=== PATIENT | male | born 1965 | race Caucasian/White ===

== ENCOUNTER 2018-07-09 06:07 | Inpatient (IN) | payer OTHER ==
[~2018-07-09] VITALS: Ht 177.8 cm; Wt 106.6 kg
[2018-07-09] VITALS (16 sets, daily range): BP systolic 87–116; BP diastolic 45–72
[2018-07-09] MEDS ORDERED: Zemuron 50mg/5ml Inj IV ONE (06:30)
[2018-07-09] MEDS ORDERED: Dexamethasone 4mg/ml vial ONE (06:46)
[2018-07-09] MEDS ORDERED: Lidocaine 1% MPF 10mg/ml 5ml ONE (06:46)
[2018-07-09] MEDS ORDERED: Sodium Chloride 10ml vial INJ ONE (06:46)
[2018-07-09] MEDS ORDERED: Lidocaine 1% Plain 30 ml INJ ONE (06:46)
[2018-07-09] MEDS ORDERED: fentaNYL 100 mcg/2 mL IV ONE (06:48)
[2018-07-09] MEDS ORDERED: ceFAZolin sod 2 GM in D5W 110 ML IVPB ONE (07:00)
[2018-07-09] MEDS ORDERED: TRAZODONE HCL100 MG ORAL (07:16)
[2018-07-09] MEDS ORDERED: LISINOPRIL10 MG ORAL (07:16)
[2018-07-09] MEDS ORDERED: TRAMADOL HCL50 MG ORAL (07:16)
[2018-07-09] MEDS ORDERED: SYNTHROID75 MCG ORAL (07:16)
[2018-07-09] MEDS ORDERED: Gelfoam Size TOPIC ONE (07:30)
[2018-07-09] MEDS ORDERED: Thrombin 5000 units TOPIC ONE (07:30)
[2018-07-09] MEDS ORDERED: Bacitracin 50000 Units Vial IRRIG ONE (07:30)
[2018-07-09] MEDS ORDERED: Propofol 1,000mg/ 100ml btl IV ONE (07:30)
[2018-07-09] MEDS ORDERED: LR 1000ml ONE (07:30)
[2018-07-09] MEDS ORDERED: Bupivacaine w/Epi 0.5% 30ml Vial INJ ONE (07:30)
[2018-07-09] MEDS ORDERED: Thrombin 5000 units spray kit TOPIC ONE (07:30)
--- NOTE | 2018-07-09 07:45 | Pre-Procedure Note/Attestation ---
Pre-Procedure Note/Attestation Complete Prior to Procedure Procedure Narrative: Left L5-S1 laminotomies, foraminotomy and microdiscectomy Attestation I attest that I discussed the nature of the procedure; its benefits; risks and complications; and alternatives (and the risks and benefits of such alternatives ), prior to the procedure, with the patient (or the patient's legal door to door sales representative). I attest that, if there was a reasonable possibility of needing a blood transfusion, the patient (or the patient's legal door to door sales representative) was given the [facility] standardized written summary, pursuant to the Eh Vira Blood Safety Act ([place] Health and Safety Code # 1645, as amended). I attest that I re-evaluated the patient just prior to the surgery and that there has been no change in the patient's H&P, except as documented below: Sukhdev Patel MD Jul 09, 2018 07:45
[2018-07-09] MEDS ORDERED: Vancomycin 1gm vial IVPB ONE (09:00)
[2018-07-09] MEDS ORDERED: Glycopyrrolate 0.2mg/ml 1ml Vial ONE ×2 (09:04→09:12)
[2018-07-09] MEDS ORDERED: Naloxone 0.4mg/ml Inj ONE (09:11)
[2018-07-09] MEDS ORDERED: LR 1000ml 1,000 ML IVLG SCH (09:39)
--- NOTE | 2018-07-09 09:41 | Brief Operative Note ---
Immediate Post Operative Note Operative Note Pre-op Diagnosis: Lumbar radiculopathy, HNP L5S1 Procedure: Left L5S1 microdecompression and microdiscectomy Post-op Diagnosis: same as pre-op Findings: consistent w/pre-op dx studies Surgeon: Jorge Fusion Juncture Grinder: [place] Anesthesiologist: Nithin Anesthesia: general Specimen: yes Complications: none Condition: stable Fluids: 1 l Estimated Blood Loss: minimal - 10cc Drains: none Implant(s) used?: No Sukhdev Patel MD Jul 09, 2018 09:41
[2018-07-09] MEDS ORDERED: Meperidine 50mg/ml Inj(FOR RIGORS ONLY) IVP PRN (09:45)
[2018-07-09] MEDS ORDERED: Naloxone 0.4mg/ml Inj IVP PRN (09:45)
[2018-07-09] MEDS ORDERED: DiphenhydrAMINE 50mg/ml Inj IVP PRN (09:45)
[2018-07-09] MEDS ORDERED: Acetaminophen (Non formulary) 100 ML IV ONE (09:45)
[2018-07-09] MEDS ORDERED: oxyCODONE HCL/Acetaminophen 5/325mg ORAL PRN (09:45)
[2018-07-09] MEDS ORDERED: Norco 5mg/325mg tab ORAL PRN ×2 (09:45)
[2018-07-09] MEDS ORDERED: HYDROmorphone 1mg/ml Carpuject IVP PRN (09:45)
[2018-07-09] MEDS ORDERED: fentaNYL 100 mcg/2 mL IV PRN (09:45)
[2018-07-09] MEDS ORDERED: LORazepam Inj 2mg/ml 1ml IV PRN (09:45)
[2018-07-09] MEDS ORDERED: Ketorolac 30mg Inj IV PRN ×2 (09:45)
[2018-07-09] MEDS ORDERED: Metoclopramide 10mg/2ml Inj IVP PRN (09:45)
[2018-07-09] MEDS ORDERED: Atropine Sulfate 0.4mg/ml inj IVP PRN (09:45)
[2018-07-09] MEDS ORDERED: HYDROmorphone 1mg/ml Carpuject SUBQ PRN (09:45)
[2018-07-09] MEDS ORDERED: Hydromorphone 0.5mg/0.5ml inj IVP PRN (09:45)
[2018-07-09] MEDS ORDERED: Midazolam 2mg/2ml Inj IVP PRN (09:45)
[2018-07-09] MEDS ORDERED: HYDROcodone/Acetamin 7.5/325 tab ORAL PRN ×2 (09:45)
--- NOTE | 2018-07-09 09:45 | Anethesia Preoperative Eval ---
Anesthesia Pre-op PMH/ROS General Date of Evaluation: Jul 09, 2018 Time of Evaluation: 07:31 Anesthesiologist: Sachin ASA Score: ASA 3 Mallampati Score Class I : Soft palate, uvula, fauces, pillars visible Class II: Soft palate, uvula, fauces visible Class III: Soft palate, base of uvula visible Class IV: Only hard plate visible Mallampati Classification: Class III Surgeon: Jorge Diagnosis: Back Pain Surgical Procedure: L5-S1 Microdiscectomy, Decompression Anesthesia History: none Family History: no anesthesia problems Allergies: Coded Allergies: No Known Allergies (Unverified , 07/09/18) Patient NPO?: Yes NPO Date: Jul 08, 2018 NPO Time: 2350 Past Medical History Cardiovascular: Reports: HTN Endocrine: Reports: hypothyroidism Other: obesity - BMI 34 PSxH Narrative: Skull Fx SX Anesthesia Pre-op Phys. Exam Physician Exam Last Vital Signs Date Time Temp Pulse Resp B/P (MAP) Pulse Ox O2 Delivery O2 Flow Rate FiO2 07/09/18 06:59 98.3 69 20 114/67 (83) 96 07/09/18 06:58 Room Air Constitutional: NAD Neurologic: CN 2-12 intact Cardiovascular: RRR Respiratory: CTA Gastrointestinal: S/NT/ND Airway Exam Mallampati Score: Class III MO: full ROM: limited Teeth: intact Anesthesia Pre-op A/P Risk Assessment & Plan Assessment: ASA 3 Plan: GA, SED, GlideScope Go Pre-Antibiotics Dru Grams Ancef IV Given Within 1 Hr of Incision: Yes Time Given: 07:46 Chidi Stephenson MD Jul 09, 2018 09:45
--- NOTE | 2018-07-09 09:47 | Immediate Post-Op Evaluation ---
Immediate Post-Op Evalulation Immediate Post-Op Evalulation Procedure: L5-S1 Microdiscectomy, Decompression Date of Evaluation: Jul 09, 2018 Time of Evaluation: 09:47 IV Fluids: 800 LR Blood Products: 0 Estimated Blood Loss: 10 Urinary Output: 0 Blood Pressure Systolic: 97 Blood Pressure Diastolic: 58 Pulse Rate: 84 Respiratory Rate: 16 O2 Sat by Pulse Oximetry: 97 Temperature (Fahrenheit): 97.4 Pain Score (1-10): 2 Nausea: No Vomiting: No Complications 0 Patient Status: awake, reacts, patent, extubated, none Hydration Status: adequate Dru Grams Ancef IV Given Within 1 Hr of Incision: Yes Time Given: 07:46 Chidi Stephenson MD Jul 09, 2018 09:47
--- NOTE | 2018-07-09 09:49 | 48 Hour Post Anesthesia Eval ---
Post Anesthesia Evaluation Procedure: L5-S1 Microdiscectomy, Decompression Date of Evaluation: Jul 09, 2018 Time of Evaluation: 12:34 Blood Pressure Systolic: 103 0: 67 Pulse Rate: 74 Respiratory Rate: 18 Temperature (Fahrenheit): 98.2 O2 Sat by Pulse Oximetry: 97 Airway: patent Nausea: No Vomiting: No Pain Intensity: 2 Hydration Status: adequate Cardiopulmonary Status: Stable Mental Status/LOC: patient returned to baseline Follow-up Care/Observations: 0 Post-Anesthesia Complications: 0 Follow-up care needed: ready to discharge Chidi Stephenson MD Jul 09, 2018 09:49
--- NOTE | 2018-07-09 11:30 | NUR ---
NURSE NOTES: Patient arrived to unit at 1120 via bed, accompanied by RN. Received report from Sera BENÍTEZ. Patient is awake alert and oriented x4, no s/s acute distress noted. On 2L NC. Patient is talkative and reporting mild pain rated 3-4/10 in lower back. Posterior dressing assessed c/d/i. Repositioned patient for comfort and applied ice. SCD's on. IV intact and asymptomatic. Neuro checked assessed intact, patient reports no numbness or tingling in lower extremities. All belongings were sent with patient's , verified by myself and Sera BENÍTEZ. Side rails upx3, bed low and locked, call light in reach. Will continue to monitor.
[2018-07-09] MEDS: NS w/KCl 20mEq 1,000 ML IV SCH ×2 (14:02→23:21)
--- NOTE | 2018-07-09 14:15 | NUR ---
NURSE NOTES: Noted patient's BP dropped to 87 systolic at 1300. Patient is asymptomatic and not reporting any dizziness. Started patient's IV fluids when delivered from pharmacy. Reassessed and patient's blood pressure is now improved at 110/65. Will continue to monitor.
--- NOTE | 2018-07-09 15:27 | NUR ---
Rehab/P.T Note: P.T evaluation completed and treatment initiated per spinal protocol. See P.T evaluation for current functional status. Skilled P.T service is warranted to ensure safety and compliance with spinal precautions in performing ADL/functional mobilities/activities following L-spine surgery.
[2018-07-09] MEDS: HYDROcodone/Acetamin 7.5/325 tab ORAL PRN ×2 (15:40→20:07)
[2018-07-09] MEDS: ceFAZolin sod 1 GM in D5W 55 ML IV SCH ×2 (15:42→23:21)
[2018-07-09] MEDS: Docusate 100mg cap ORAL SCH (18:07)
--- NOTE | 2018-07-09 19:50 | NUR ---
HAND-OFF: Report given to Misael RN. Patient in stable condition.
--- NOTE | 2018-07-09 19:51 | NUR ---
NURSE NOTES: Received report from Jade BENÍTEZ. PT A&O x4, laying semi-fowlers in bed. Pt on RA w/ IS at bedside. IV site dry&intact, infusing fluids. Surgical dressing C/D/I. at bedside. Call light in reach, bed in lowest position, side rails up x2. Will continue to monitor pt.
--- NOTE | 2018-07-09 20:15 | Operative Note - Dictated ---
DATE OF OPERATION: 07/09/2018 PREOPERATIVE DIAGNOSIS: L5-S1 disk protrusion with stenosis and left lower extremity radiculopathy. POSTOPERATIVE DIAGNOSIS: L5-S1 disk protrusion with stenosis and left lower extremity radiculopathy. PROCEDURE PERFORMED: 1. Left-sided L5-S1 medial facetectomy, foraminotomy, and microdiscectomy. 2. Intraoperative use of microscope. 3. Intraoperative use of fluoroscopy. SURGEON: Sukhdev Patel M.D. CANE FLUME FEEDING MACHINE OPERATOR: Juvenal Monge M.D. ANESTHESIA: General. ANESTHESIOLOGIST: Chidi Stephenson M.D. INTRAOPERATIVE FINDINGS: Left-sided L5-S1 lateral recess stenosis, foraminal stenosis, disc protrusion and impingement of the neural elements at L5-S1. ESTIMATED BLOOD LOSS: 10 mL. FLUIDS: One liter crystalloid. INDICATIONS: A pleasant male who failed nonoperative treatment and options for above treatment was given. Risks, alternatives, and benefits were discussed with the patient at length. Risks include, but are not limited to, anesthesia complications including , medical complications including liver, kidney, cardiopulmonary deficits, bleeding, infection, dural tear, CSF leak, nerve root injury, pars fracture, instability, reherniation, as well as continued symptoms. OPERATION: The patient was brought into the operating room, supine on a stretcher. Appropriate IV lines were placed by the anesthesiologist and 2 g of Ancef was administered before the skin incision. A surgical time-out was called. Anesthesia was induced. The patient was successfully intubated. Sequential compression devices were placed onto the bilateral lower extremities. The patient was gently turned over onto the Ash frame table. All bony prominences were well padded and the abdomen was assured to lie freely. The L5-S1 interspace was positively identified preoperatively via preoperative fluoroscopy. There was a transitional level with a rudimentary disk . At this point, a marker was used to tuan the midline and the back was prepped and draped in usual sterile fashion with alcohol, chlorhexidine scrub, ChloraPrep, and Ioban draping. My real estate executive assistant and myself were appropriately prepped and gowned. An incision was carried over the L5-S1 interspace and the intraoperatively sterilely draped microscope was brought into the field. Subperiosteal dissection on L5 and S1 laminas wide done with monopolar cautery through the dorsal lumbar fascia. The lateral joint capsule at L5-S1 was well preserved. A flight dispatcher retractor was set into place and a radiopaque marker was placed at the caudal pedicle level at the exiting interspace and the S1 pedicle was positively identified via lateral fluoroscopy and thus the L5-S1 level, which was positively identified. At this point, with a high-speed drill, straight and curved curette #2 through #5 Kerrison punches an intralumbar laminotomy, medial facetectomy, and removal of the ligamentum flavum was done. The ligamentum flavum was first released from the L5 to the undersurface of the L5 lamina and with a nerve hook was gently peeled off the common dural sac. There was lateral recess stenosis and this was decompressed via removing the medial aspect of the superior articular facet of S1 until it was flushed with the pedicle. There was foraminal stenosis and with a #2 and #3 Kerrison punch the foramina and the superior aspect of the superior articular facet was removed decompressing the exiting nerve root. At this point, a [place] 4 retractor was used to gently retract the neural elements. The epidural veins were coagulated with bipolar cautery and a disk protrusion was found central and left paracentral impinging onto the neural elements. A cruciate incision was made into the posterior anulus with a #11 blade and with pituitary rongeurs forward angled, backward angled straight as well as Bruce instrument, Bibiana probe the herniated disk was released and removed until the floor of the canal was flat and there was no further impingement onto the dural elements. A check with a Taylor ball was done in the neural foramina and the neural foramina of the exiting left L5 nerve root was found to be well patent and decompressed. The S1 nerve root was also well decompressed. Valsalva at 30 and 40 mmHg was done. There was no CSF leak. Some of the disk material was sucked with the suction device and some of the disk material was saved for specimen. Intraoperative photos were taken. At this point, the wound was copiously irrigated with triple antibiotic solution. The hemostasis was achieved with Gelfoam, thrombin, bipolar cautery. The dorsal lumbar fascia was closed with #1 Vicryl sutures in a watertight fashion. The subdermal and subcuticular layers were closed with 2-0 Vicryl sutures in interrupted inverted fashion. The skin was closed with Dermabond. Sterile dressing tape was placed. The patient was turned supine, was extubated in stable condition, was found to be neurovascularly intact, was taken to the recovery room for observation. Full postop instructions were given. Sukhdev Patel M.D. DR: ELENA JOB#: [id number] CC:
[2018-07-10] VITALS: BP 124/76
[2018-07-10 04:00] VITALS: BP 105/60
[2018-07-10] MEDS: HYDROcodone/Acetamin 7.5/325 tab ORAL PRN (04:03)
[2018-07-10] MEDS: ceFAZolin sod 1 GM in D5W 55 ML IV SCH (06:46)
--- NOTE | 2018-07-10 07:53 | NUR ---
HAND-OFF: Report given to Robin BENÍTEZ. Pt is stable.
[2018-07-10 08:00] VITALS: BP 110/65
--- NOTE | 2018-07-10 08:00 | NUR ---
NURSE NOTES: Patient lying in bed awake. No complain of pain or distress at this time. Skin intact and dry. Surgical dressing intact and dry. IV dressing intact and dry. IV fluid on going as ordered. Bed lowest position. Call light within reach. Will continue to monitor.
--- NOTE | 2018-07-10 08:53 | 48 Hour Post Anesthesia Eval ---
Post Anesthesia Evaluation Procedure: L5-S1 Microdiscectomy, Decompression Date of Evaluation: Jul 10, 2018 Time of Evaluation: 08:51 Blood Pressure Systolic: 106 0: 74 Pulse Rate: 68 Respiratory Rate: 20 Temperature (Fahrenheit): 97.6 O2 Sat by Pulse Oximetry: 98 Airway: patent Nausea: No Vomiting: No Pain Intensity: 2 Hydration Status: adequate Cardiopulmonary Status: stable Mental Status/LOC: patient returned to baseline Follow-up Care/Observations: n/a Post-Anesthesia Complications: none Follow-up care needed: ready to discharge Satinder Rogers MD Jul 10, 2018 08:52
[2018-07-10] MEDS ORDERED: Lisinopril 10mg tab ORAL SCH (09:00)
[2018-07-10 09:33] VITALS: BP 110/65
[2018-07-10] MEDS: Docusate 100mg cap ORAL SCH (09:33)
[2018-07-10] MEDS: NS w/KCl 20mEq 1,000 ML IV SCH (09:33)
[2018-07-10] MEDS ORDERED: NORCO 10-325 T1 EACH ORAL (10:03)
[2018-07-10] MEDS ORDERED: CEPHALEXIN500 MG ORAL (10:05)
[2018-07-10] MEDS ORDERED: NAPROXEN250 MG ORAL (10:05)
--- NOTE | 2018-07-10 10:40 | NUR ---
NURSE NOTES: Patient discharged with family member in stable condition. Discharge instruction given to patient and verbalized understanding. Belonging and prescription given to patient. IV and ID removed. Patient ambulated out with all personal belongings with steady gait.
--- NOTE | 2018-07-12 08:12 | Discharge Summary ---
Discharge Summary Hospital Course Date of Admission Jul 09, 2018 at 06:07 Date of Discharge Jul 10, 2018 at 12:58 Admitting Diagnosis lumbar radiculopathy Reason for Hospitalization: elective surgery HPI Ramu Luis is a 53 year old male who was admitted on Jul 09, 2018 at 06:07 for lumbar radiculopathy. Patient was admitted for elective surgery. Procedures s/p 07/09/[address] Patel 1. Left-sided L5-S1 medial facetectomy, foraminotomy, and microdiscectomy. 2. Intraoperative use of microscope. 3. Intraoperative use of fluoroscopy. Hospital Course status post surgery course of recovery uneventful initially IV fluids s/p perioperative antibiotics neurovascular status closely monitored, stable incision with dressing clean, dry and intact pain management addressed ; pain controlled hemodynamically stable ambulated with PT fall precautions maintained; safe for ambulation incentive spirometry encouraged while in the bed tolerated diet , IV fluids discontinued GI prophylaxis provided antiemetics were on board as needed voided freely bowel regimen instituted home medication resumed for management of blood pressure and hypothyroidism blood pressure stable patient was stable for discharge discharge instructions provided follow up with surgeon as outpatient as advised by surgeon FINAL DIAGNOSIS Lumbar radiculopathy, herniated nucleus pulposus L5- S1 s/p Left L5S1 microdecompression and microdiscectomy Discharge Medications Continued Medications: Cephalexin* (Keflex*) 500 Mg Capsule 500 MG ORAL EVERY 6 HOURS for 5 Days, #20 CAP (This prescription has been renewed) Hydrocodone Bit/Acetaminophen 10-325* (Maurice 10-325*) 1 Each Tablet 1 TAB ORAL Q4H PRN for For Pain, #40 TAB 0 Refills (This prescription has been renewed) PRN PAIN Levothyroxine Sodium* (Synthroid*) 75 Mcg Tablet 50 MCG ORAL DAILY, TAB (This prescription has been renewed) Take in the morning on an empty stomach, at least 30 minutes before food. Lisinopril* (Lisinopril*) 10 Mg Tablet 10 MG ORAL DAILY, TAB (This prescription has been renewed) Naproxen* (Naprosyn*) 250 Mg Tablet 500 MG ORAL TWICE A DAY PRN for For Pain, #40 TAB 0 Refills (This prescription has been renewed) Tramadol Hcl* (Ultram*) 50 Mg Tablet 50 MG ORAL Q6H PRN for For Pain, #30 TAB 0 Refills (This prescription has been renewed) Trazodone Hcl* (Desyrel*) 100 Mg Tablet 100 MG ORAL NEEDED, TAB (This prescription has been renewed) Discharge Condition Upon Discharge: stable Discharge Disposition Patient was discharged to Home (01) Discharge Instructions Discharge Instructions Special Instructions I have been assigned to complete a D/C Summary on this account. I was not involved in the patient management Bel So NP Jul 12, 2018 08:12
== END 2018-07-10 12:58 | disposition home or self-care (01) | DRG 520 ==
LOC: SDSOVERFLO 06:07 → 3E 11:20
PROC: 0ST40ZZ Resection of Lumbosacral Disc, Open Approach (ICD-10-PCS; principal; 2018-07-09 07:30)
DX: M51.17 Intervertebral disc disorders with radiculopathy, lumbosacral region (principal); M48.07 Spinal stenosis, lumbosacral region; E03.9 Hypothyroidism, unspecified; I10 Essential (primary) hypertension
CPT/HCPCS: 72020; 76000; 82962; 87081; 96360; 96361; G0378; J2405